=== PATIENT | female | born 1995 | race Two or more races ===

== ENCOUNTER 2022-09-15 11:27 | Emergency (ER) | payer OTHER ==
[~2022-09-15] VITALS: Ht 165.1 cm; Wt 78.3 kg
[2022-09-15] MEDS ORDERED: LIDOCAINE VISCOUS 2% 15ML UD PO ONE (12:00)
[2022-09-15] MEDS ORDERED: MAALOX PLUS or MAALOX 30 ML PO ONE (12:00)
[2022-09-15] MEDS ORDERED: ONDANSETRON ODT 4 MG TAB PO ONE (12:00)
[2022-09-15 12:24] LABS: Basophils # (auto) 0.1 10 ^3/uL (0-0.2); Basophils % (auto) 0.9 % (0.0-2.0); Eosinophils # (auto) 0 10 ^3/uL (0-0.8); Hematocrit 42.3 % (36.0-46.0); Hemoglobin 14.4 g/dL (12.2-16.2); Lymphocytes # (auto) 0.7 10 ^3/uL (0.4-5.4); Lymphocytes % (auto) 5.5 % (10.0-50.0); Mean Corpuscular Hemoglobin 32.9 pg (28.0-32.0); Mean Corpuscular Hgb Conc. 34.1 g/dL (32.0-36.0); Mean Corpuscular Volume 96.4 fL (80.0-100.0); Monocytes # (auto) 0.5 10 ^3/uL (0-1.3); Monocytes % (auto) 4.2 % (0.0-12.0); Neutrophils # (auto) 11.5 10 ^3/uL (1.6-8.6); Neutrophils % (auto) 89.4 % (37.0-80.0); Nucleated Red Blood Cells % 0.1 %; Red Blood Cells 4.38 10^6/uL (4.0-5.20); Red Cell Distribution Width 12.4 % (11.8-14.3); White Blood Cell 12.9 10^3/uL (4.4-10.8)
[2022-09-15 12:29] LABS: Urine Bacteria NONE SEEN /hpf (None Seen); Urine Blood 2+ /uL (Negative); Urine Mucus MANY (None Seen); Urine Specific Gravity 1.041 (1.001-1.035); Urine WBC 5 /hpf (0 - 5)
[2022-09-15 13:03] LABS: Albumin 4.3 g/dL (3.4-5.0); BUN/Creatinine Ratio 11.2 (10.0-20.0); Calcium 9.8 mg/dL (8.5-10.1); Potassium 3.8 mmol/L (3.5-5.1)
[2022-09-15 13:06] LABS: Bilirubin, Total 0.7 mg/dL (0.2-1.0); Total Protein 8.8 g/dL (6.4-8.2)
[2022-09-15] MEDS ORDERED: NITR-87 PO (13:49)
[2022-09-15 15:14] VITALS: BP 132/78
== END 2022-09-15 15:16 | disposition home or self-care (01) ==
LOC: ER 11:27
DX: K29.70 Gastritis, unspecified, without bleeding (principal); N39.0 Urinary tract infection, site not specified
CPT/HCPCS: 36415; 74176; 80053; 81001; 81025; 83690; 85025; 99284; Q0162